=== PATIENT | female | born 1990 | race Caucasian/White ===

== ENCOUNTER 2019-04-08 08:46 | Emergency (ER) | payer OTHER ==
[~2019-04-08] VITALS: Ht 157.4 cm; Wt 90.7 kg
[~2019-04-08 08:46] MED LIST: AMOXICILLIN500 MG PO; AMOXIL500 MG PO; ANAPROX DS550 MG PO; ASPIRIN81 M1 PO; AUGMENTIN 875 M1 TAB PO; BACTRIM DS 8001 TA1 PO; BAYER ASPIRIN C81 MG PO; BENADRYL25 MG PO; BIRTH CONTROL; BIRTH CONTROL1 EAC1 PO; CELEXA40 MG PO; CIPRODEX 0.3%-7.5 ML OT; COLACE100 MG PO; DONNATAL1 TAB PO; FLEXERIL5 MG PO; FLINTSTONES W/I1 CTB PO; FLINTSTONES1 CTB PO; FOLGARD PO; FOLGARD/FOLTAB1 TAB PO; FOLIC ACID0.4 MG PO; HEPARIN IM; KEFLEX500 MG PO; LOVENOX30 MG/0.3 SC; Lovenox40 MG/0.4 SC; MACROBID100 M1 PO; MELOXICAM7.5 MG PO; MOTRIN800 MG PO; NATURE'S BLEND F1 MG PO; PHENERGAN25 M1 PO; PRENATAL1 TA1 PO; PRENATAL1 TA4 PO; ROBAXIN750 MG PO; SUDAFED60 M1 PO; TRAMADOL50 MG PO; TUMS 500500 MG PO; TYLENOL325 M1 PO; VICODIN 5/500 505 MG PO; VOLTAREN50 M1 PO; ZANTAC150 MG PO; ZOFRAN ODT4 MG SL; ZOFRAN4 MG PO
[2019-04-08 08:47] VITALS: BP 123/77
[2019-04-08] MEDS ORDERED: Motrin,Rufen800 MG PO (09:29)
== END 2019-04-08 09:32 | disposition home or self-care (01) ==
LOC: ED 08:46
DX: L55.0 Sunburn of first degree (principal); D68.51 Activated protein C resistance; Z98.890 Other specified postprocedural states; Z79.899 Other long term (current) drug therapy

== ENCOUNTER 2019-06-17 18:37 | Emergency (ER) | payer OTHER ==
[~2019-06-17] VITALS: Ht 157.4 cm; Wt 90.7 kg
[~2019-06-17 18:37] MED LIST changes: +Motrin,Rufen800 MG PO
[2019-06-17 18:39] VITALS: BP 111/67
[2019-06-17 18:56] LABS: BILIRUBIN NEGATIVE (NEGATIVE); BLOOD 2+ (NEGATIVE); CLARITY SL CLOUDY (CLEAR); COLOR YELLOW (YELLOW); GLUCOSE NEGATIVE (NEGATIVE); KETONE NEGATIVE (NEGATIVE); LEUKO ESTERASE 2+ (NEGATIVE); NITRITE NEGATIVE (NEGATIVE); UROBILINOGEN 0.2 E.U./dl (0.2-1.0)
[2019-06-17 19:01] LABS: BACTERIA 3+; MUCOUS 2+; WBC TNTC wbc/hpf (0-5)
[2019-06-17] MEDS ORDERED: MACROBID100 M1 PO (19:06)
== END 2019-06-17 19:25 | disposition home or self-care (01) ==
LOC: ED 18:37
PROVIDERS: Nurse Practitioner Family
DX: N39.0 Urinary tract infection, site not specified (principal); Z79.899 Other long term (current) drug therapy

== ENCOUNTER 2019-07-01 22:09 | Emergency (ER) | payer OTHER ==
[~2019-07-01] VITALS: Ht 157.4 cm; Wt 90.3 kg
[2019-07-01 22:14] VITALS: BP 97/56
[2019-07-01] MEDS ORDERED: PREDNISONE10 MG PO (23:54)
[2019-07-01] MEDS ORDERED: ATARAX,VISTARIL50 MG PO (23:54)
== END 2019-07-02 00:45 | disposition home or self-care (01) ==
LOC: ED 22:09
DX: L29.8 Other pruritus (principal); T37.8X5A Adverse effect of other specified systemic anti-infectives and antiparasitics, initial encounter; M79.89 Other specified soft tissue disorders; M79.641 Pain in right hand; M79.642 Pain in left hand; Z79.899 Other long term (current) drug therapy; Z90.49 Acquired absence of other specified parts of digestive tract; Y92.89 Other specified places as the place of occurrence of the external cause

== ENCOUNTER 2019-08-29 08:58 | Emergency (ER) | payer OTHER ==
[~2019-08-29] VITALS: Ht 157.4 cm; Wt 88.5 kg
[~2019-08-29 08:58] MED LIST changes: +ATARAX,VISTARIL50 MG PO; +PREDNISONE10 MG PO
[2019-08-29 08:59] VITALS: BP 113/72
[2019-08-29] MEDS ORDERED: POLYTRIM 1000010 M1 OPH ×2 (09:14→09:40)
== END 2019-08-29 09:46 | disposition home or self-care (01) ==
LOC: ED 08:58
DX: J06.9 Acute upper respiratory infection, unspecified (principal); H10.31 Unspecified acute conjunctivitis, right eye; J02.9 Acute pharyngitis, unspecified; Z79.899 Other long term (current) drug therapy

== ENCOUNTER 2020-02-22 17:00 | Emergency (ER) | payer OTHER ==
[~2020-02-22] VITALS: Ht 157.4 cm; Wt 82.1 kg
[~2020-02-22 17:00] MED LIST changes: +POLYTRIM 1000010 M1 OPH
[2020-02-22] MEDS ORDERED: IBU800 MG PO (19:29)
[2020-02-22 19:33] VITALS: BP 114/73
== END 2020-02-22 19:33 | disposition home or self-care (01) ==
LOC: ED 17:00
DX: S40.022A Contusion of left upper arm, initial encounter (principal); Z79.899 Other long term (current) drug therapy; Z79.2 Long term (current) use of antibiotics; X58.XXXA Exposure to other specified factors, initial encounter; Y93.89 Activity, other specified; Y92.89 Other specified places as the place of occurrence of the external cause; Y99.8 Other external cause status

== ENCOUNTER → 2020-03-10 | Outpatient (CLI) | payer OTHER ==
[~2020-03-10] MED LIST changes: +IBU800 MG PO
== END | disposition home or self-care (01) ==
LOC: MRI 03-06 09:00
DX: S42.92XA Fracture of left shoulder girdle, part unspecified, initial encounter for closed fracture (principal); M77.12 Lateral epicondylitis, left elbow; M75.52 Bursitis of left shoulder; M77.8 Other enthesopathies, not elsewhere classified; X58.XXXA Exposure to other specified factors, initial encounter; X58.XXXD Exposure to other specified factors, subsequent encounter; Y93.89 Activity, other specified; Y92.89 Other specified places as the place of occurrence of the external cause; Y99.8 Other external cause status

== ENCOUNTER 2020-08-28 19:03 | Emergency (ER) | payer OTHER ==
[~2020-08-28] VITALS: Ht 157.4 cm; Wt 79.4 kg
[2020-08-28 19:54] VITALS: BP 104/84
[2020-08-28 20:21] LABS: BASO % 0.1 % (0.0-1.0); EOS # 0.3 10*3/uL (0.0-0.4); EOS % 2.2 % (1.0-4.0); HEMATOCRIT 45.8 % (37.0-47.0); LYMPH # 1.2 10*3/uL (1.3-4.4); LYMPH % 8.4 % (27.0-41.0); MEAN CELL VOLUME 91.1 fl (81.0-99.0); MEAN CORPUSCULAR HGB 30.6 pg (27.0-31.0); MEAN CORPUSCULAR HGB CONC 33.6 g/dl (33.0-37.0); MEAN PLATELET VOLUME 9.5 fl (9.6-12.3); MONO # 0.6 10*3/uL (0.1-1.0); MONO % 4.3 % (3.0-9.0); NEUT # 11.7 10*3/uL (2.3-7.9); NEUT % 84.8 % (47.0-73.0); PLATELET COUNT AUTOMATED 312 10*3/uL (130-400); RED BLOOD COUNT 5.03 10*6/uL (4.10-5.10); RED CELL DISTRI WIDTH 11.2 % (0-14.5); WHITE BLOOD COUNT 13.9 10*3/uL (4.8-10.8)
[2020-08-28 20:36] LABS: ALKALINE PHOSPHATASE 67 U/L (45-117); BUN 21 mg/dl (7-24); CHLORIDE 108 mmol/L (98-107); CREATININE 0.79 mg/dL (0.55-1.02); POTASSIUM 3.5 mmol/L (3.5-5.1); SGOT/AST 9 IU/L (3-35); SGPT/ALT 17 U/L (12-78); SODIUM 139 mmol/L (136-145); TOTAL PROTEIN 7.9 gm/dL (6.4-8.2)
[2020-08-28 21:39] LABS: BILIRUBIN Negative (Negative); BLOOD Trace-Lysed (Negative); CLARITY Clear (Clear); COLOR Yellow (Yellow); GLUCOSE Negative (Negative); KETONE 1+ (Negative); LEUKO ESTERASE Negative (Negative); NITRITE Negative (Negative); SPECIFIC GRAVITY >= 1.030 (1.001-1.030); UROBILINOGEN 0.2 E.U./dl (0.0-1.0)
[2020-08-28 21:49] LABS: BACTERIA 1+; MUCOUS 1+
[2020-08-28] MEDS ORDERED: SEPTDS PO (22:19)
[2020-08-28] MEDS ORDERED: CIPROFLOXACIN250 MG PO (22:25)
== END 2020-08-28 22:52 | disposition home or self-care (01) ==
LOC: ED 19:03
PROVIDERS: Nurse Practitioner
DX: R11.2 Nausea with vomiting, unspecified (principal); Z20.828 Contact with and (suspected) exposure to other viral communicable diseases; R19.7 Diarrhea, unspecified; Z88.1 Allergy status to other antibiotic agents; Z88.8 Allergy status to other drugs, medicaments and biological substances

== ENCOUNTER 2020-09-22 15:44 | Emergency (ER) | payer OTHER ==
[~2020-09-22] VITALS: Ht 157.4 cm; Wt 79.4 kg
[~2020-09-22 15:44] MED LIST changes: +CIPROFLOXACIN250 MG PO; +SEPTDS PO
[2020-09-22 16:16] VITALS: BP 116/77
[2020-09-22] MEDS ORDERED: ARTHRITIS PAI42.5 GM T (18:17)
[2020-09-22] MEDS ORDERED: VOLTAREN100 GM T (18:17)
== END 2020-09-22 18:33 | disposition home or self-care (01) ==
LOC: ED 15:44
DX: M54.5 Low back pain (principal); Z88.8 Allergy status to other drugs, medicaments and biological substances; Z79.899 Other long term (current) drug therapy

== ENCOUNTER 2020-12-09 19:11 | Emergency (ER) | payer OTHER ==
[~2020-12-09] VITALS: Ht 157.4 cm; Wt 85.7 kg
[2020-12-09 19:11] VITALS: BP 134/65
[~2020-12-09 19:11] MED LIST changes: +ARTHRITIS PAI42.5 GM T; +VOLTAREN100 GM T
[2020-12-09 19:57] LABS: BASO # 0.1 10*3/uL (0.0-0.1); BASO % 0.3 % (0.0-1.0); EOS # 0.1 10*3/uL (0.0-0.4); EOS % 0.8 % (1.0-4.0); HEMATOCRIT 47.2 % (37.0-47.0); LYMPH # 2.7 10*3/uL (1.3-4.4); LYMPH % 16.6 % (27.0-41.0); MEAN CELL VOLUME 90.6 fl (81.0-99.0); MEAN CORPUSCULAR HGB 31.5 pg (27.0-31.0); MEAN CORPUSCULAR HGB CONC 34.7 g/dl (33.0-37.0); MEAN PLATELET VOLUME 9.6 fl (9.6-12.3); MONO # 0.4 10*3/uL (0.1-1.0); MONO % 2.5 % (3.0-9.0); NEUT # 12.9 10*3/uL (2.3-7.9); NEUT % 79.4 % (47.0-73.0); PLATELET COUNT AUTOMATED 455 10*3/uL (130-400); RED BLOOD COUNT 5.21 10*6/uL (4.10-5.10); RED CELL DISTRI WIDTH 11.2 % (0-14.5); WHITE BLOOD COUNT 16.3 10*3/uL (4.8-10.8)
[2020-12-09 20:14] LABS: ALBUMIN 4.4 gm/dl (3.1-4.5); ALKALINE PHOSPHATASE 82 U/L (45-117); BUN 16 mg/dl (7-24); CHLORIDE 106 mmol/L (98-107); CREATININE 0.95 mg/dL (0.55-1.02); LIPASE 116 U/L (73-393); POTASSIUM 3.1 mmol/L (3.5-5.1); SGOT/AST 11 IU/L (3-35); SGPT/ALT 25 U/L (12-78); SODIUM 138 mmol/L (136-145); TOTAL PROTEIN 9.3 gm/dL (6.4-8.2)
[2020-12-09 20:21] LABS: BILIRUBIN 1+ (Negative); BLOOD Negative (Negative); CLARITY Cloudy (Clear); COLOR Dark Yellow (Yellow); GLUCOSE Negative (Negative); KETONE 1+ (Negative); LEUKO ESTERASE 1+ (Negative); NITRITE Negative (Negative); PH 5.5 (4.5-8.0); SPECIFIC GRAVITY >= 1.030 (1.001-1.030)
[2020-12-09 20:32] LABS: BACTERIA 2+; CALCIUM OXALATE CRYSTALS 2+; EPITHELIAL CELLS 16-20
[2020-12-09 20:33] LABS: RBC 0-2 rbc/hpf (0-2)
[2020-12-09] MEDS ORDERED: CIPRO500 MG PO (22:29)
[2020-12-09] MEDS ORDERED: PYRIDIUM200 M1 PO (22:29)
== END 2020-12-09 23:08 | disposition home or self-care (01) ==
LOC: ED 19:11
PROVIDERS: Physician Assistant
DX: N39.0 Urinary tract infection, site not specified (principal); Z88.8 Allergy status to other drugs, medicaments and biological substances; Z79.899 Other long term (current) drug therapy

== ENCOUNTER 2022-02-02 08:25 | Emergency (ER) | payer OTHER ==
[~2022-02-02] VITALS: Wt 74.8 kg
[~2022-02-02 08:25] MED LIST changes: +CIPRO500 MG PO; +PYRIDIUM200 M1 PO
[2022-02-02 08:32] VITALS: BP 127/88
[2022-02-02 09:20] LABS: BASO % 0.1 % (0.0-1.0); EOS % 0.5 % (1.0-4.0); HEMATOCRIT 42.6 % (37.0-47.0); LYMPH # 0.9 10*3/uL (1.3-4.4); LYMPH % 11.7 % (27.0-41.0); MEAN CELL VOLUME 87.8 fl (81.0-99.0); MEAN CORPUSCULAR HGB 31.1 pg (27.0-31.0); MEAN CORPUSCULAR HGB CONC 35.4 g/dl (33.0-37.0); MEAN PLATELET VOLUME 9.2 fl (9.6-12.3); MONO # 0.3 10*3/uL (0.1-1.0); NEUT # 6.4 10*3/uL (2.3-7.9); NEUT % 83.6 % (47.0-73.0); PLATELET COUNT AUTOMATED 311 10*3/uL (130-400); RED BLOOD COUNT 4.85 10*6/uL (4.10-5.10); WHITE BLOOD COUNT 7.7 10*3/uL (4.8-10.8)
[2022-02-02 09:36] LABS: ALKALINE PHOSPHATASE 70 U/L (45-117); BUN 14 mg/dl (7-24); CHLORIDE 109 mmol/L (98-107); CREATININE 0.67 mg/dL (0.55-1.02); POTASSIUM 3.6 mmol/L (3.5-5.1); SGOT/AST 10 IU/L (3-35); SGPT/ALT 17 U/L (12-78); SODIUM 138 mmol/L (136-145); TOTAL PROTEIN 7.4 gm/dL (6.4-8.2)
[2022-02-02] MEDS ORDERED: BENADRYL ALLERG25 M5 PO (10:48)
[2022-02-02] MEDS ORDERED: ZOFRAN4 MG PO (10:48)
[2022-02-02] MEDS ORDERED: PREDNISONE50 MG PO (10:48)
== END 2022-02-02 10:57 | disposition home or self-care (01) ==
LOC: ED 08:25
PROVIDERS: Student in an Organized Health Care Education/Training Program
DX: T78.49XA Other allergy, initial encounter (principal); Z88.1 Allergy status to other antibiotic agents; Z88.8 Allergy status to other drugs, medicaments and biological substances; Z90.49 Acquired absence of other specified parts of digestive tract; X58.XXXA Exposure to other specified factors, initial encounter

== ENCOUNTER 2022-08-22 16:28 | Emergency (ER) | payer OTHER ==
[~2022-08-22] VITALS: Ht 157.4 cm; Wt 65.8 kg
[~2022-08-22 16:28] MED LIST changes: +BENADRYL ALLERG25 M5 PO; +PREDNISONE50 MG PO
[2022-08-22 16:36] VITALS: BP 116/72
== END 2022-08-22 18:06 | disposition home or self-care (01) ==
LOC: ED 16:28
DX: M79.662 Pain in left lower leg (principal); Z90.49 Acquired absence of other specified parts of digestive tract; Z88.0 Allergy status to penicillin; Z88.8 Allergy status to other drugs, medicaments and biological substances

== ENCOUNTER 2022-10-21 10:18 | Emergency (ER) | payer OTHER ==
[~2022-10-21] VITALS: Ht 157.4 cm; Wt 65.8 kg
[2022-10-21 10:27] VITALS: BP 122/72
[2022-10-21] MEDS ORDERED: DIFLUCAN150 MG PO (11:28)
[2022-10-21] MEDS ORDERED: SEPTDS PO (11:28)
== END 2022-10-21 11:32 | disposition home or self-care (01) ==
LOC: ED 10:18
DX: L02.11 Cutaneous abscess of neck (principal); Z88.1 Allergy status to other antibiotic agents; Z88.8 Allergy status to other drugs, medicaments and biological substances; Z90.49 Acquired absence of other specified parts of digestive tract

== ENCOUNTER → 2022-10-24 | Outpatient (CLI) | payer OTHER ==
[~2022-10-24] MED LIST changes: +DIFLUCAN150 MG PO
== END | disposition home or self-care (01) ==
LOC: WOUNDCARE 00:42
PROVIDERS: ATTEND Nurse Practitioner Family
DX: L02.11 Cutaneous abscess of neck (principal)

== ENCOUNTER → 2022-10-29 | Outpatient (CLI) | payer OTHER | END | disposition home or self-care (01) | LOC: WOUNDCARE 01:47 | PROVIDERS: ATTEND Nurse Practitioner Family | DX: L02.11 Cutaneous abscess of neck (principal); L98.492 Non-pressure chronic ulcer of skin of other sites with fat layer exposed ==

== ENCOUNTER → 2022-11-05 | Outpatient (CLI) | payer OTHER | END | disposition home or self-care (01) | LOC: WOUNDCARE 03:10 | PROVIDERS: ATTEND Nurse Practitioner Family | DX: L02.11 Cutaneous abscess of neck (principal) ==

== ENCOUNTER → 2022-11-12 | Outpatient (CLI) | payer OTHER | END | disposition home or self-care (01) | LOC: WOUNDCARE 00:20 | PROVIDERS: ATTEND Nurse Practitioner Family | DX: L02.11 Cutaneous abscess of neck (principal) ==

== ENCOUNTER 2022-11-22 15:29 | Emergency (ER) | payer OTHER ==
[~2022-11-22] VITALS: Ht 157.4 cm; Wt 65.8 kg
[2022-11-22 15:54] LABS: BILIRUBIN 1+ (Negative); BLOOD Negative (Negative); CLARITY Clear (Clear); COLOR Dark Yellow (Yellow); GLUCOSE Negative (Negative); KETONE Negative (Negative); LEUKO ESTERASE 1+ (Negative); NITRITE Positive (Negative); PH 5.5 (4.5-8.0); SPECIFIC GRAVITY 1.025 (1.001-1.030)
[2022-11-22 16:02] LABS: BACTERIA 1+; MUCOUS 1+
[2022-11-22] MEDS ORDERED: CIPRO500 MG PO (16:36)
[2022-11-22 16:53] VITALS: BP 97/54
== END 2022-11-22 16:55 | disposition home or self-care (01) ==
LOC: ED 15:29
PROVIDERS: Emergency Medicine
DX: N39.0 Urinary tract infection, site not specified (principal); Z88.1 Allergy status to other antibiotic agents; Z88.8 Allergy status to other drugs, medicaments and biological substances; Z98.890 Other specified postprocedural states; F10.90 Alcohol use, unspecified, uncomplicated

== ENCOUNTER 2023-03-23 23:33 | Emergency (ER) | payer OTHER ==
[~2023-03-23] VITALS: Ht 157.4 cm; Wt 61.2 kg
[2023-03-24 00:26] VITALS: BP 103/69
[2023-03-24 00:35] LABS: BASO % 0.4 % (0.0-1.0); EOS % 0.3 % (1.0-4.0); LYMPH # 0.5 10*3/uL (1.3-4.4); MEAN CELL VOLUME 89.6 fl (81.0-99.0); MEAN CORPUSCULAR HGB 31.8 pg (27.0-31.0); MEAN CORPUSCULAR HGB CONC 35.5 g/dl (33.0-37.0); MONO # 0.3 10*3/uL (0.1-1.0); MONO % 3.8 % (3.0-9.0); NEUT # 6.3 10*3/uL (2.3-7.9); NEUT % 88.2 % (47.0-73.0); PLATELET COUNT AUTOMATED 212 10*3/uL (130-400); RED BLOOD COUNT 4.69 10*6/uL (4.10-5.10); RED CELL DISTRI WIDTH 11.6 % (0-14.5); WHITE BLOOD COUNT 7.1 10*3/uL (4.8-10.8)
[2023-03-24 00:54] LABS: ALKALINE PHOSPHATASE 51 U/L (46-116); BUN 13 mg/dl (9-23); CHLORIDE 108 mmol/L (98-107); LIPASE 30 U/L (12-53); POTASSIUM 2.9 mmol/L (3.4-5.1); SGPT/ALT 12 U/L (10-49); TOTAL PROTEIN 6.8 gm/dL (6.0-8.0)
[2023-03-24] MEDS ORDERED: ONDANSETRON4 MG SL (03:15)
[2023-03-24] MEDS ORDERED: CEPHALEXIN500 M1 PO (23:51)
[2023-03-24] MEDS ORDERED: PROVENTIL HFA6.7 GM PO (23:51)
== END 2023-03-24 03:13 | disposition home or self-care (01) ==
LOC: ED 23:33
PROVIDERS: Internal Medicine
DX: K52.9 Noninfective gastroenteritis and colitis, unspecified (principal); E87.6 Hypokalemia; Z88.1 Allergy status to other antibiotic agents; Z88.8 Allergy status to other drugs, medicaments and biological substances; Z98.890 Other specified postprocedural states

== ENCOUNTER 2023-03-24 21:33 | Emergency (ER) | payer OTHER ==
[~2023-03-24] VITALS: Ht 157.4 cm; Wt 61.2 kg
[~2023-03-24 21:33] MED LIST changes: +ONDANSETRON4 MG SL
[2023-03-24 21:48] VITALS: BP 105/77
[2023-03-24 22:16] LABS: BASO % 0.4 % (0.0-1.0); EOS # 0.1 10*3/uL (0.0-0.4); EOS % 0.7 % (1.0-4.0); HEMATOCRIT 45.3 % (37.0-47.0); LYMPH # 0.8 10*3/uL (1.3-4.4); LYMPH % 11.7 % (27.0-41.0); MEAN CELL VOLUME 90.4 fl (81.0-99.0); MEAN CORPUSCULAR HGB 31.9 pg (27.0-31.0); MEAN CORPUSCULAR HGB CONC 35.3 g/dl (33.0-37.0); MEAN PLATELET VOLUME 9.2 fl (9.6-12.3); MONO # 0.5 10*3/uL (0.1-1.0); MONO % 6.6 % (3.0-9.0); NEUT # 5.7 10*3/uL (2.3-7.9); NEUT % 80.2 % (47.0-73.0); PLATELET COUNT AUTOMATED 258 10*3/uL (130-400); RED BLOOD COUNT 5.01 10*6/uL (4.10-5.10); RED CELL DISTRI WIDTH 11.7 % (0-14.5); WHITE BLOOD COUNT 7.2 10*3/uL (4.8-10.8)
[2023-03-24 22:32] LABS: ALKALINE PHOSPHATASE 53 U/L (46-116); BUN 13 mg/dl (9-23); CHLORIDE 110 mmol/L (98-107); SGPT/ALT 16 U/L (10-49); TOTAL PROTEIN 7.3 gm/dL (6.0-8.0)
[2023-03-24 22:59] LABS: BILIRUBIN 2+ (Negative); BLOOD 2+ (Negative); CLARITY Turbid (Clear); COLOR Red (Yellow); GLUCOSE Negative (Negative); KETONE Negative (Negative); LEUKO ESTERASE 3+ (Negative); NITRITE Positive (Negative); SPECIFIC GRAVITY >= 1.030 (1.001-1.030); UROBILINOGEN 0.2 E.U./dl (0.0-1.0)
[2023-03-24 23:18] LABS: BACTERIA 2+; RBC TNTC rbc/hpf (0-2); WBC 21-30 wbc/hpf (0-5)
[2023-03-24] MEDS ORDERED: PROVENTIL HFA6.7 GM PO (23:51)
[2023-03-24] MEDS ORDERED: CEPHALEXIN500 M1 PO (23:51)
== END 2023-03-25 00:52 | disposition home or self-care (01) ==
LOC: ED 21:33
PROVIDERS: Emergency Medicine
DX: N39.0 Urinary tract infection, site not specified (principal); R11.2 Nausea with vomiting, unspecified; Z88.1 Allergy status to other antibiotic agents; Z88.8 Allergy status to other drugs, medicaments and biological substances; Z98.890 Other specified postprocedural states

== ENCOUNTER 2023-05-31 09:23 | Emergency (ER) | payer OTHER ==
[~2023-05-31] VITALS: Ht 160 cm; Wt 61.2 kg
[~2023-05-31 09:23] MED LIST changes: +CEPHALEXIN500 M1 PO; +PROVENTIL HFA6.7 GM PO
[2023-05-31 09:28] VITALS: BP 108/63
[2023-05-31] MEDS ORDERED: CEPHALEXIN500 M1 PO (09:49)
== END 2023-05-31 10:12 | disposition home or self-care (01) ==
LOC: ED 09:23
DX: S61.512A Laceration without foreign body of left wrist, initial encounter (principal); S91.311A Laceration without foreign body, right foot, initial encounter; Z88.1 Allergy status to other antibiotic agents; Z88.8 Allergy status to other drugs, medicaments and biological substances; Z98.890 Other specified postprocedural states; W22.8XXA Striking against or struck by other objects, initial encounter; Y93.89 Activity, other specified; Y92.89 Other specified places as the place of occurrence of the external cause; Y99.8 Other external cause status

== ENCOUNTER 2023-11-23 18:56 | Emergency (ER) | payer OTHER ==
[~2023-11-23] VITALS: Ht 157.4 cm; Wt 61.2 kg
[2023-11-23 19:28] VITALS: BP 105/71
[2023-11-23 19:46] LABS: BASO # 0.1 10*3/uL (0.0-0.1); BASO % 0.6 % (0.0-1.0); EOS # 0.4 10*3/uL (0.0-0.4); LYMPH # 2.7 10*3/uL (1.3-4.4); MEAN CELL VOLUME 91.9 fl (81.0-99.0); MEAN CORPUSCULAR HGB 31.1 pg (27.0-31.0); MEAN CORPUSCULAR HGB CONC 33.8 g/dl (33.0-37.0); MONO # 0.7 10*3/uL (0.1-1.0); MONO % 5.9 % (3.0-9.0); NEUT # 7.8 10*3/uL (2.3-7.9); NEUT % 67.2 % (47.0-73.0); PLATELET COUNT AUTOMATED 328 10*3/uL (130-400); RED BLOOD COUNT 4.57 10*6/uL (4.10-5.10); RED CELL DISTRI WIDTH 11.5 % (0-14.5); WHITE BLOOD COUNT 11.6 10*3/uL (4.8-10.8)
[2023-11-23 20:44] LABS: ALKALINE PHOSPHATASE 65 U/L (46-116); BUN 9 mg/dl (9-23); CHLORIDE 108 mmol/L (98-107); POTASSIUM 3.4 mmol/L (3.4-5.1); SGPT/ALT 10 U/L (5-49)
== END 2023-11-23 20:48 | disposition home or self-care (01) ==
LOC: ED 18:56
PROVIDERS: Physician Assistant Medical
DX: M79.631 Pain in right forearm (principal); Z88.1 Allergy status to other antibiotic agents; Z88.8 Allergy status to other drugs, medicaments and biological substances; Z98.890 Other specified postprocedural states

== ENCOUNTER → 2023-11-27 | Outpatient (CLI) | payer OTHER | END | disposition home or self-care (01) | LOC: US 11-26 11:00 | PROVIDERS: ATTEND Family Medicine | DX: R22.31 Localized swelling, mass and lump, right upper limb (principal); M79.601 Pain in right arm ==

== ENCOUNTER 2024-01-16 14:16 | Emergency (ER) | payer OTHER ==
[~2024-01-16] VITALS: Wt 65.8 kg
[2024-01-16 14:22] VITALS: BP 125/94
[2024-01-16] MEDS ORDERED: MUCINEX1200 M1 PO (14:32)
[2024-01-16] MEDS ORDERED: REGLAN10 M1 PO (14:32)
[2024-01-16] MEDS ORDERED: AVPAK AZITHROM250 M1 PO (14:32)
== END 2024-01-16 14:36 | disposition home or self-care (01) ==
LOC: ED 14:16
DX: J32.9 Chronic sinusitis, unspecified (principal); F41.9 Anxiety disorder, unspecified; Z88.1 Allergy status to other antibiotic agents; Z88.8 Allergy status to other drugs, medicaments and biological substances; Z90.49 Acquired absence of other specified parts of digestive tract; Z98.890 Other specified postprocedural states

== ENCOUNTER 2024-03-03 22:52 | Emergency (ER) | payer OTHER ==
[~2024-03-03] VITALS: Ht 160 cm; Wt 72.6 kg
[2024-03-03 22:52] VITALS: BP 154/90
[~2024-03-03 22:52] MED LIST changes: +AVPAK AZITHROM250 M1 PO; +MUCINEX1200 M1 PO; +REGLAN10 M1 PO
[2024-03-03 23:26] LABS: BASO # 0.1 10*3/uL (0.0-0.1); BASO % 0.7 % (0.0-1.0); EOS # 0.4 10*3/uL (0.0-0.4); EOS % 3.5 % (1.0-4.0); HEMATOCRIT 42.4 % (37.0-47.0); LYMPH # 2.7 10*3/uL (1.3-4.4); LYMPH % 24.7 % (27.0-41.0); MEAN CELL VOLUME 91.2 fl (81.0-99.0); MEAN CORPUSCULAR HGB 31.4 pg (27.0-31.0); MEAN CORPUSCULAR HGB CONC 34.4 g/dl (33.0-37.0); MEAN PLATELET VOLUME 9.5 fl (9.6-12.3); MONO # 0.5 10*3/uL (0.1-1.0); MONO % 4.7 % (3.0-9.0); NEUT # 7.2 10*3/uL (2.3-7.9); NEUT % 66.1 % (47.0-73.0); PLATELET COUNT AUTOMATED 337 10*3/uL (130-400); RED BLOOD COUNT 4.65 10*6/uL (4.10-5.10); RED CELL DISTRI WIDTH 11.2 % (0-14.5); WHITE BLOOD COUNT 10.9 10*3/uL (4.8-10.8)
[2024-03-03 23:47] LABS: ALKALINE PHOSPHATASE 60 U/L (46-116); BUN 9 mg/dl (9-23); CHLORIDE 106 mmol/L (98-107); ETHYL ALCOHOL 3.8 mg/dl (<3); POTASSIUM 4.3 mmol/L (3.4-5.1); SGPT/ALT 13 U/L (5-49); TOTAL PROTEIN 7.4 gm/dL (6.0-8.0)
[2024-03-04 08:01] LABS: BILIRUBIN Negative (Negative); BLOOD Negative (Negative); CLARITY Clear (Clear); COLOR Yellow (Yellow); GLUCOSE Negative (Negative); KETONE Negative (Negative); LEUKO ESTERASE 1+ (Negative); NITRITE Negative (Negative); PH 6.5 (4.5-8.0); SPECIFIC GRAVITY <= 1.005 (1.001-1.030); UROBILINOGEN 0.2 E.U./dl (0.0-1.0)
[2024-03-04 08:08] LABS: WBC 16-20 wbc/hpf (0-5)
[2024-03-04 08:09] LABS: URINE AMPHETAMINES Negative (1000ng/ml); URINE BARBITURATES Negative (200ng/ml); URINE BENZODIAZEPINES Negative (200ng/ml); URINE CANNABINOIDS (THC) Negative (50ng/ml); URINE COCAINE Negative (300ng/ml); URINE METHADONE Negative (300ng/ml); URINE OPIATES Negative (300ng/ml); URINE PHENCYCLIDINE Negative (25ng/ml)
[2024-03-04] MEDS ORDERED: LORazepam 1 MG TAB PO ONE (13:25)
== END 2024-03-04 13:48 | disposition short-term general hospital (02) ==
LOC: ED 22:52
PROVIDERS: Emergency Medicine
DX: F43.21 Adjustment disorder with depressed mood (principal); F41.9 Anxiety disorder, unspecified; Z88.1 Allergy status to other antibiotic agents; Z88.8 Allergy status to other drugs, medicaments and biological substances

== ENCOUNTER → 2024-04-19 | Outpatient (CLI) | payer OTHER ==
[2024-04-19 14:25] LABS: BILIRUBIN Negative (Negative); BLOOD Negative (Negative); CLARITY Clear (Clear); COLOR Yellow (Yellow); GLUCOSE Negative (Negative); KETONE Negative (Negative); LEUKO ESTERASE Trace (Negative); NITRITE Negative (Negative); PH 6.5 (4.5-8.0)
[2024-04-19 14:26] LABS: HEMATOCRIT 39.5 % (37.0-47.0); MEAN CELL VOLUME 91.2 fl (81.0-99.0); MEAN CORPUSCULAR HGB 31.6 pg (27.0-31.0); MEAN CORPUSCULAR HGB CONC 34.7 g/dl (33.0-37.0); PLATELET COUNT AUTOMATED 337 10*3/uL (130-400); RED BLOOD COUNT 4.33 10*6/uL (4.10-5.10); RED CELL DISTRI WIDTH 11.7 % (0-14.5); WHITE BLOOD COUNT 9.9 10*3/uL (4.8-10.8)
[2024-04-19 14:37] LABS: ACT PARTIAL THROMBO TIME 27.1 SECONDS (20.0-32.1)
[2024-04-19 14:40] LABS: BACTERIA 1+; EPITHELIAL CELLS 51-100; RBC 0-2 rbc/hpf (0-2); WBC 0-2 wbc/hpf (0-5)
[2024-04-19 14:48] LABS: BASOPHILS 2 % (0-1); TOTAL CELLS COUNTED 100 #CELLS
[2024-04-19 14:49] LABS: PLATELET SUFFICIENCY NORMAL (NORMAL)
[2024-04-19 14:54] LABS: ALKALINE PHOSPHATASE 60 U/L (46-116); BUN 10 mg/dl (9-23); CHLORIDE 106 mmol/L (98-107); POTASSIUM 3.7 mmol/L (3.4-5.1); SGPT/ALT 13 U/L (5-49); TOTAL PROTEIN 6.9 gm/dL (6.0-8.0)
[2024-04-19 14:58] LABS: BETA-HCG, QUANT < 3.0 mIU/mL (3-10); CHOLESTEROL 163 mg/dL (<200); GAMMA GLUTAMYL TRANSPEPTIDASE 19 U/L (0-73); LDL CHOLESTEROL 72 mg/dL (9-159); T3 UPTAKE 29.4 % (22.4-36.7); THYROXINE (T4) TOTAL 5.4 ug/dl (4.5-10.9); TRIGLYCERIDES 83 mg/dl (<150); URIC ACID 4.3 mg/dL (3.1-7.8)
[2024-04-19 14:59] LABS: B-hCG (QUALITATIVE) NEGATIVE (NEGATIVE)
[2024-04-19 15:00] LABS: VITAMIN D, 25-HYDROXY 28.4 ng/mL (30-100)
[2024-04-20 07:07] LABS: TOTAL PROTEIN, SERUM 6.6 g/dL (6.0-8.5)
[2024-04-20 08:10] LABS: SEX HORMONE BINDING GLOBULIN 63.4 nmol/L (24.6-122.0)
[2024-04-20 10:08] LABS: HBSAG Negative (Negative); HEP B CORE AB, IGM Negative (Negative); HEPATITIS C ANTIBODY Non Reactive (Non Reactive)
[2024-04-20 13:07] LABS: ANTI-DSDNA ANTIBODIES 1 IU/mL (0-9)
[2024-04-20 16:08] LABS: A/G RATIO 1.2 (0.7-1.7); ALBUMIN 3.6 g/dL (2.9-4.4); ALPHA-1-GLOBULIN 0.2 g/dL (0.0-0.4); ALPHA-2-GLOBULIN 0.6 g/dL (0.4-1.0); GAMMA GLOBULIN 1.3 g/dL (0.4-1.8)
== END | disposition home or self-care (01) ==
LOC: LAB 13:34
PROVIDERS: Family Medicine; ATTEND Oral & Maxillofacial Surgery
DX: Z01.812 Encounter for preprocedural laboratory examination (principal); R06.02 Shortness of breath

== ENCOUNTER 2024-07-08 23:03 | Emergency (ER) | payer OTHER ==
[2024-07-08 23:12] VITALS: BP 119/84
[2024-07-08] MEDS ORDERED: diphenhydrAMINE hydrochloride 50 MG/ML VIAL IM ONE (23:40)
[2024-07-08] MEDS ORDERED: methylPREDNISolone sod succ 125 MG VIAL IM ONE (23:40)
[2024-07-08] MEDS ORDERED: PREDNISONE10 MG PO (23:41)
[2024-07-08] MEDS ORDERED: BENADRYL ALLERG25 M5 PO (23:41)
== END 2024-07-09 00:24 | disposition home or self-care (01) ==
LOC: ED 23:03
DX: L23.7 Allergic contact dermatitis due to plants, except food (principal); Z88.1 Allergy status to other antibiotic agents; Z88.8 Allergy status to other drugs, medicaments and biological substances; Z98.890 Other specified postprocedural states; Z90.49 Acquired absence of other specified parts of digestive tract

== ENCOUNTER 2025-06-09 22:15 | Emergency (ER) | payer OTHER ==
[~2025-06-09] VITALS: Ht 157.4 cm; Wt 65.8 kg
[2025-06-09 22:22] VITALS: BP 117/87
[2025-06-10] MEDS ORDERED: Glucagon Hydrochloride 1 MG SYR IV ONE (00:05)
== END 2025-06-10 01:44 | disposition home or self-care (01) ==
LOC: ED 22:15
DX: K22.2 Esophageal obstruction (principal); Z88.1 Allergy status to other antibiotic agents; Z88.8 Allergy status to other drugs, medicaments and biological substances